=== PATIENT | male | born 1970 | race Caucasian/White ===

== ENCOUNTER → 2016-06-20 | Outpatient (CLI) | payer OTHER ==
--- NOTE | 2016-06-20 19:31 | PN ---
DATE OF SERVICE: 06/20/2016 This patient is 45-year-old gentleman who has been followed in the sleep center. He is here to discuss results of sleep studies and treatment of obstructive sleep apnea/hypopnea syndrome. We discussed the results of his sleep studies in detail. The patient has extremely severe sleep apnea, at present on treatment with CPAP at the pressure of 13 cm of water. I checked his CPAP unit; his apnea/hypopnea index reading with the machine for the one-month period is 1.1, and leak is 24 L/minute, which is acceptable. The patient used his equipment for the last month 25 out of 30 days; average usage 3.8 hours. Unfortunately the number of days with more than 4 hours is 12 out of 30, but it looks like he sleeps very close to 4 hours. He feels better with the machine in regards to his sleep and also during the day. [place] Sleepiness Scale is 3. No tiredness or sleepiness is reported. MEDICATION: Metoprolol. During physical exam, patient is in no distress. VITAL SIGNS: BP 138/71, HR 84, RR 16. Weight 261. Temperature 97.8. Oxygen saturation at room air 96%. HEENT: PERRLA, EOMI. LUNGS: Clear. HEART: S1, S2 regular. ABDOMEN: Soft, nontender. EXTREMITIES: No edema. IMPRESSION: 1. Extremely severe obstructive sleep apnea/hypopnea syndrome; apnea-hypopnea index 84.5 with oxygen desaturation to 65%, under control with CPAP at 13 cm water. Patient is able to use equipment without any problem, benefitting from treatment. Sometimes his mask goes off during the night. 2. Obesity. 3. Hypertension. 4. Carpal tunnel syndrome, status post surgical treatment. 5. Status post cholecystectomy. PLAN: 1. Patient will continue to use equipment every night for the whole night. 2. Losing weight. 3. Sleep hygiene with regular time in bed for at least 8 hours. 4. No driving if feeling any sleepiness. Thank you very much for allowing me to participate in the management of your patient. Sincerely, Obinna Lomax MD, PhD, FAASM. Diplomat of [place] [employer], Sleep Medicine Board by [place] [employer], [place] [employer]
== END | disposition home or self-care (01) ==

== ENCOUNTER 2019-12-31 18:38 | Emergency (ER) | payer OTHER ==
[2019-12-31 18:56] VITALS: RESP 18
[2019-12-31] MEDS ORDERED: KETOROLAC 30 MG/ML 1 ML VIAL IVP STA (19:43)
[2019-12-31] MEDS ORDERED: SODIUM CHLORIDE 0.9% 1,000 ML IV STA (19:47)
--- NOTE | 2019-12-31 19:47 | ED ---
Abdominal Pain HPI - General Chief Complaint: Abdominal Pain Stated Complaint: Abdominal pain Time Seen by Provider: 12/31/19 19:10 Source: patient Mode of arrival: ambulatory Limitations: no limitations - History of Present Illness Initial Comments: Patient is a 49-year-old male presenting to emergency Department with chief complaint of abdominal pain. Patient states the symptoms began early this morning when he woke up. Patient left lower quadrant abdominal pain without any radiation. Patient reports the pain feels like pressure. States he feels like he needs to have bowel movement but there is no need to actually have one. States did have a bowel movement earlier today without any issues. States the pain does not change with bowel movement. He does have history of cholecystectomy so he does have loose stools at baseline. Denies any hematuria, hematochezia or melena. Denies any penile discharge, testicular pain or tenderness. Denies any night sweats or chills. Denies any nausea vomiting. Denies any chest pain or shortness of breath. No flank or back pain. He never had a colonoscopy. - Related Data Home Medications Medication Instructions Recorded Confirmed Amoxicillin 500 mg PO TID 12/31/19 12/31/19 Atorvastatin [Lipitor] 10 mg PO HS 12/31/19 12/31/19 Canagliflozin [Invokana] 300 mg PO QAM 12/31/19 12/31/19 Lisinopril [Zestril] 10 mg PO DAILY 12/31/19 12/31/19 Metoprolol Succinate [Toprol XL] 25 mg PO DAILY 12/31/19 12/31/19 Semaglutide [Rybelsus] 7 mg PO QAM 12/31/19 12/31/19 Previous Rx's Medication Instructions Recorded Amoxicillin/Potassium Clav 1 tab PO Q12HR #28 tab 12/31/19 [Augmentin 875-125 Tablet] Allergies Allergy/AdvReac Type Severity Reaction Status Date / Time No Known Allergies Allergy Verified 12/31/19 20:01 Review of Systems ROS Statement: Those systems with pertinent positive or pertinent negative responses have been documented in the HPI. ROS Other: All systems not noted in ROS Statement are negative. Past Medical History Past Medical History: Diabetes Mellitus History of Any Multi-Drug Resistant Organisms: None Reported Past Surgical History: Cholecystectomy Past Psychological History: No Psychological Hx Reported Smoking Status: Never smoker Past Alcohol Use History: Occasional Past Drug Use History: None Reported General Exam Limitations: no limitations General appearance: alert, in no apparent distress, obese Head exam: Present: atraumatic, normocephalic, normal inspection Eye exam: Present: normal appearance, PERRL, EOMI Pupils: Present: normal accommodation ENT exam: Present: normal exam, normal oropharynx, mucous membranes moist, TM's normal bilaterally, normal external ear exam Neck exam: Present: normal inspection, full ROM. Absent: tenderness Respiratory exam: Present: normal lung sounds bilaterally. Absent: respiratory distress, wheezes, rales Cardiovascular Exam: Present: regular rate, normal rhythm, normal heart sounds GI/Abdominal exam: Present: soft, tenderness (Left lower quadrant), normal bowel sounds. Absent: distended, guarding, rebound, rigid, hernia exam: Present: normal inspection. Absent: testicular tenderness, urethral discharge, scrotal swelling, vertical testicular lie Extremities exam: Present: normal inspection, full ROM, normal capillary refill. Absent: tenderness Back exam: Present: normal inspection, full ROM. Absent: tenderness, CVA tenderness (R), CVA tenderness (L) Neurological exam: Present: alert, oriented X3, normal gait Psychiatric exam: Present: normal affect, normal mood Skin exam: Present: warm, dry, intact, normal color Course Vital Signs 12/31/19 12/31/19 18:53 22:55 Temperature 99 F 98.0 F Pulse Rate 96 88 Respiratory 18 18 Rate Blood Pressure 125/80 103/67 O2 Sat by Pulse 96 95 Oximetry Medical Decision Making - Medical Decision Making Patient is a 49-year-old male presenting to emergency Department with a chief complaint of abdominal pain. I patient has left lower quadrant abdominal pain. He does have mild leukocytosis. UA shows positive for ketones and glucose. Patient is diabetic. Anion gap is 10. CT abdomen and pelvis reveals for full diverticulitis. Patient started on Augmentin emergency department will be discharged with a 14 day course of Augmentin. Patient advised about the importance of a proper diverticulitis diet. His vitals are stable. Patient is tolerating orals. Abdominal pain is manageable. Return parameters were thoroughly discussed the patient's or standing and agreeable. Case discussed physician. - Lab Data Result diagrams: 12/31/19 20:06 12/31/19 20:06 Lab Results 12/31/19 12/31/19 12/31/19 Range/Units 20:06 20:06 20:06 WBC 11.5 H (3.8-10.6) k/uL RBC 5.01 (4.30-5.90) m/uL Hgb 15.1 (13.0-17.5) gm/dL Hct 44.7 (39.0-53.0) % MCV 89.2 (80.0-100.0) fL MCH 30.1 (25.0-35.0) pg MCHC 33.7 (31.0-37.0) g/dL RDW 12.8 (11.5-15.5) % Plt Count 304 (150-450) k/uL Neutrophils % 75 % Lymphocytes % 14 % Monocytes % 7 % Eosinophils % 1 % Basophils % 1 % Neutrophils # 8.7 H (1.3-7.7) k/uL Lymphocytes # 1.7 (1.0-4.8) k/uL Monocytes # 0.9 (0-1.0) k/uL Eosinophils # 0.1 (0-0.7) k/uL Basophils # 0.1 (0-0.2) k/uL Sodium 135 L (137-145) mmol/L Potassium 3.9 (3.5-5.1) mmol/L Chloride 102 (98-107) mmol/L Carbon Dioxide 23 (22-30) mmol/L Anion Gap 10 mmol/L BUN 15 (9-20) mg/dL Creatinine 0.75 (0.66-1.25) mg/dL Est GFR (CKD-EPI)AfAm >90 (>60 ml/min/1.73 sqM) Est GFR (CKD-EPI)NonAf >90 (>60 ml/min/1.73 sqM) Glucose 177 H (74-99) mg/dL Calcium 9.5 (8.4-10.2) mg/dL Total Bilirubin 0.5 (0.2-1.3) mg/dL AST 29 (17-59) U/L ALT 37 (4-49) U/L Alkaline Phosphatase 68 (38-126) U/L Total Protein 7.2 (6.3-8.2) g/dL Albumin 4.5 (3.5-5.0) g/dL Amylase 68 (30-110) U/L Lipase 222 (23-300) U/L Urine Color Light Yellow Urine Appearance Clear (Clear) Urine pH 5.5 (5.0-8.0) Ur Specific [place] 1.031 (1.001-1.035) Urine Protein Negative (Negative) Urine Glucose (UA) 4+ H (Negative) Urine Ketones 2+ H (Negative) Urine Blood Negative (Negative) Urine Nitrite Negative (Negative) Urine Bilirubin Negative (Negative) Urine Urobilinogen <2.0 (<2.0) mg/dL Ur Leukocyte Esterase Negative (Negative) Disposition Clinical Impression: Diverticulitis, Abdominal pain Disposition: HOME SELF-CARE Condition: Stable Instructions (If sedation given, give patient instructions): Diverticulitis (ED), Diverticulitis Diet (ED) Additional Instructions: Take prescribed medication. Follow proper diet. Return to emergency department if symptoms worsen. Prescriptions: Amoxicillin/Potassium Clav [Augmentin 875-125 Tablet] 1 tab PO Q12HR #28 tab Is patient prescribed a controlled substance at d/c from ED?: No Referrals: Corky Santiago MD [Primary Care Provider] - 1-2 days Time of Disposition: 21:53
[2019-12-31 20:15] LABS: Appearance,Urine Clear (Clear); Bilirubin,Urine Negative (Negative); Blood,Urine Negative (Negative); Color,Urine Light Yellow; Glucose,Urine (UA) 4+ (Negative); Leukocyte Esterase,Urine Negative (Negative); Nitrite,Urine Negative (Negative); PH, Urine 5.5 (5.0-8.0); Protein,Urine Negative (Negative); Specific Gravity,Urine 1.031 (1.001-1.035); Urobilinogen,Urine <2.0 mg/dL (<2.0)
[2019-12-31 20:18] LABS: Basophils # (A) 0.1 k/uL (0-0.2); Basophils % (A) 1 %; Eosinophils # (A) 0.1 k/uL (0-0.7); Eosinophils % (A) 1 %; HCT 44.7 % (39.0-53.0); HGB 15.1 gm/dL (13.0-17.5); Lymphocytes # (A) 1.7 k/uL (1.0-4.8); Lymphocytes % (A) 14 %; MCH 30.1 pg (25.0-35.0); MCHC 33.7 g/dL (31.0-37.0); MCV 89.2 fL (80.0-100.0); Mean Platelet Volume 6.7; Monocytes # (A) 0.9 k/uL (0-1.0); Monocytes % (A) 7 %; Neutrophils # (A) 8.7 k/uL (1.3-7.7); Neutrophils % (A) 75 %; Platelet Count 304 k/uL (150-450); RBC 5.01 m/uL (4.30-5.90); RDW 12.8 % (11.5-15.5); WBC 11.5 k/uL (3.8-10.6)
[2019-12-31 20:32] LABS: ALT 37 U/L (4-49); AST 29 U/L (17-59); African American GFR (CKD) >90 (>60 ml/min/1.73 sqM); Albumin 4.5 g/dL (3.5-5.0); Alkaline Phosphatase 68 U/L (38-126); Amylase 68 U/L (30-110); Anion Gap 10 mmol/L; Blood Urea Nitrogen 15 mg/dL (9-20); Calcium 9.5 mg/dL (8.4-10.2); Carbon Dioxide 23 mmol/L (22-30); Chloride 102 mmol/L (98-107); Glucose 177 mg/dL (74-99); Non-African American GFR(CKD) >90 (>60 ml/min/1.73 sqM); Potassium 3.9 mmol/L (3.5-5.1); Sodium 135 mmol/L (137-145); Total Bilirubin 0.5 mg/dL (0.2-1.3); Total Protein 7.2 g/dL (6.3-8.2)
[2019-12-31 20:38] LABS: Ketones,Urine 2+ (Negative)
[2019-12-31] MEDS ORDERED: MORPHINE SULFATE 4 MG/ML SYRINGE IVP STA (21:32)
--- NOTE | 2019-12-31 21:48 | CT ---
EXAMINATION TYPE: CT abdomen pelvis w con DATE OF EXAM: 12/31/2019 COMPARISON: None HISTORY: LLQ pain CT DLP: 1716 mGycm Automated exposure control for dose reduction was used. CONTRAST: Performed with IV Contrast, patient injected with 100 mL of Isovue 300. Images were obtained from the diaphragm to the floor the pelvis with IV contrast. There is some mild atelectasis at the posterior lung bases. There is mild fatty infiltration of the l iver. There are clips from cholecystectomy. Stomach spleen pancreas appear normal. Bile ducts are not dilated. There is no adrenal mass. Kidneys show satisfactory contrast opacification. There is no hydronephrosi s. Ureters are not dilated. There is no retroperitoneal adenopathy. Bladder distends smoothly. There is fat stranding around the proximal sigmoid colon with scattered diverticula. The appendix is line installer ior and appears normal. There is no mesenteric edema. There is no ascites or free air. There is no bowel obstruction. There i s no inguinal hernia. The lumbar vertebra have normal alignment. There is no compression fracture. I see no focal bone destruction. The bony pelvis appears intact. There is bilateral L5 spondylolysis wi thout spondylolisthesis. IMPRESSION: There is some focal diverticulitis in the proximal sigmoid colon. No drainable fluid collection. L5 spondylolysis without spondylolisthesis. Minimal atelectasis at the lung bases.
[2019-12-31] MEDS ORDERED: AMOXIC-POT CLAV 875-125MG 1 EACH TAB PO STA (21:51)
[2019-12-31 22:57] VITALS: BP 103/67; PULSE 88; TEMP 98
== END 2019-12-31 22:57 | disposition home or self-care (01) ==
LOC: EC 18:38
DX: K57.32 Diverticulitis of large intestine without perforation or abscess without bleeding (principal); E11.9 Type 2 diabetes mellitus without complications; Z79.84 Long term (current) use of oral hypoglycemic drugs; Z79.899 Other long term (current) drug therapy; Z90.49 Acquired absence of other specified parts of digestive tract
CPT/HCPCS: 36415; 80053; 82150; 83690; 85025; 81003; 74177; 99284; 96374; 96375; 96361; J2270; J1885; Q9967

== ENCOUNTER 2020-05-18 17:00 | Observation (INO) | payer OTHER ==
--- NOTE | 2020-05-18 17:55 | ED ---
General Adult HPI - General Chief complaint: Chest Pain Stated complaint: chest pain Time Seen by Provider: 05/18/20 17:02 Source: patient, EMS, RN notes reviewed, old records reviewed Mode of arrival: EMS Limitations: no limitations - History of Present Illness Initial comments: 49-year-old male presenting for evaluation of left-sided chest pain which began approximately one hour prior to arrival. Patient has history of hypertension diabetes. He states he had a sharp chest pain in the left lateral chest. He did not radiate. It was intermittent over the course of several minutes. He has no chest pain at the time my evaluation. No dyspnea. Minimal cough. No vomiting. He states he did feel warm and flushed at the onset of this pain. He has no known history of coronary artery disease. No history DVT or PE. Denies lower extremity pain or swelling. Denies fever. - Related Data Home Medications Medication Instructions Recorded Confirmed Atorvastatin [Lipitor] 10 mg PO HS 12/31/19 05/18/20 Canagliflozin [Invokana] 300 mg PO DAILY 12/31/19 05/18/20 Lisinopril [Zestril] 10 mg PO DAILY 12/31/19 05/18/20 Metoprolol Succinate [Toprol XL] 25 mg PO DAILY 12/31/19 05/18/20 Allergies Allergy/AdvReac Type Severity Reaction Status Date / Time No Known Allergies Allergy Verified 05/18/20 17:35 Review of Systems ROS Statement: Those systems with pertinent positive or pertinent negative responses have been documented in the HPI. ROS Other: All systems not noted in ROS Statement are negative. Past Medical History Past Medical History: Diabetes Mellitus, Hypertension History of Any Multi-Drug Resistant Organisms: None Reported Past Surgical History: Cholecystectomy Additional Past Surgical History / Comment(s): carpal tunnel left hand Past Psychological History: No Psychological Hx Reported Smoking Status: Never smoker Past Alcohol Use History: Occasional Past Drug Use History: None Reported General Exam Limitations: no limitations General appearance: alert, in no apparent distress Head exam: Present: atraumatic, normocephalic Eye exam: Present: normal appearance, PERRL ENT exam: Present: normal exam Neck exam: Present: normal inspection Respiratory exam: Present: normal lung sounds bilaterally. Absent: respiratory distress, wheezes Cardiovascular Exam: Present: regular rate, normal rhythm GI/Abdominal exam: Present: soft. Absent: distended, tenderness, guarding Extremities exam: Present: normal inspection, normal capillary refill. Absent: pedal edema Neurological exam: Present: alert, oriented X3 Psychiatric exam: Present: normal affect, normal mood Skin exam: Present: warm, dry, intact. Absent: cyanosis, diaphoretic Course Vital Signs 05/18/20 05/18/20 05/18/20 17:03 17:40 18:43 Temperature 98.1 F 98.0 F Pulse Rate 85 84 76 Respiratory 18 18 16 Rate Blood Pressure 137/97 137/97 113/74 O2 Sat by Pulse 95 96 97 Oximetry - Reevaluation(s) Reevaluation #1: 05/18/20 18:58 Patient had received aspirin prior to transport by EMS. He is reevaluated, chest pain-free. EKG Findings - EKG Comments: EKG Findings:: EKG: Normal sinus rhythm, rate of 84, [place] interval 172, QRS duration 96, QTC 437, no ST segment elevation. Medical Decision Making - Medical Decision Making 49-year-old male with left anterior chest pain. Pain has been typical and atypical features. No known coronary artery disease, he does have hypertension and diabetes. EKG is sinus rhythm without ST segment elevation. Chest x-rays negative for acute cardio pulmonary disease. Normal CBC, normal CMP, negative troponin, negative d-dimer. Patient remains chest pain-free while in the emergency department. He will be kept in observation for serial cardiac enzymes, telemetry, cardiac consultation. Case is discussed with Dr. House who will admit. - Lab Data Result diagrams: 05/18/20 17:19 05/18/20 17:19 Lab Results 05/18/20 05/18/20 05/18/20 Range/Units 17:19 17:19 17:19 WBC 6.6 (3.8-10.6) k/uL RBC 5.46 (4.30-5.90) m/uL Hgb 16.2 (13.0-17.5) gm/dL Hct 48.7 (39.0-53.0) % MCV 89.1 (80.0-100.0) fL MCH 29.8 (25.0-35.0) pg MCHC 33.4 (31.0-37.0) g/dL RDW 13.2 (11.5-15.5) % Plt Count 293 (150-450) k/uL MPV 6.7 Neutrophils % 56 % Lymphocytes % 29 % Monocytes % 10 % Eosinophils % 1 % Basophils % 1 % Neutrophils # 3.7 (1.3-7.7) k/uL Lymphocytes # 1.9 (1.0-4.8) k/uL Monocytes # 0.7 (0-1.0) k/uL Eosinophils # 0.1 (0-0.7) k/uL Basophils # 0.0 (0-0.2) k/uL PT 10.1 (9.0-12.0) sec INR 1.0 (<1.2) APTT 25.1 (22.0-30.0) sec D-Dimer <0.17 (<0.60) mg/L FEU Sodium 137 (137-145) mmol/L Potassium 4.2 (3.5-5.1) mmol/L Chloride 105 (98-107) mmol/L Carbon Dioxide 24 (22-30) mmol/L Anion Gap 8 mmol/L BUN 16 (9-20) mg/dL Creatinine 0.84 (0.66-1.25) mg/dL Est GFR (CKD-EPI)AfAm >90 (>60 ml/min/1.73 sqM) Est GFR (CKD-EPI)NonAf >90 (>60 ml/min/1.73 sqM) Glucose 149 H (74-99) mg/dL Calcium 10.0 (8.4-10.2) mg/dL Magnesium 2.0 (1.6-2.3) mg/dL Total Bilirubin 0.3 (0.2-1.3) mg/dL AST 46 (17-59) U/L ALT 67 H (4-49) U/L Alkaline Phosphatase 57 (38-126) U/L Troponin I (0.000-0.034) ng/mL Total Protein 7.7 (6.3-8.2) g/dL Albumin 4.6 (3.5-5.0) g/dL 05/18/20 Range/Units 17:19 WBC (3.8-10.6) k/uL RBC (4.30-5.90) m/uL Hgb (13.0-17.5) gm/dL Hct (39.0-53.0) % MCV (80.0-100.0) fL MCH (25.0-35.0) pg MCHC (31.0-37.0) g/dL RDW (11.5-15.5) % Plt Count (150-450) k/uL MPV Neutrophils % % Lymphocytes % % Monocytes % % Eosinophils % % Basophils % % Neutrophils # (1.3-7.7) k/uL Lymphocytes # (1.0-4.8) k/uL Monocytes # (0-1.0) k/uL Eosinophils # (0-0.7) k/uL Basophils # (0-0.2) k/uL PT (9.0-12.0) sec INR (<1.2) APTT (22.0-30.0) sec D-Dimer (<0.60) mg/L FEU Sodium (137-145) mmol/L Potassium (3.5-5.1) mmol/L Chloride (98-107) mmol/L Carbon Dioxide (22-30) mmol/L Anion Gap mmol/L BUN (9-20) mg/dL Creatinine (0.66-1.25) mg/dL Est GFR (CKD-EPI)AfAm (>60 ml/min/1.73 sqM) Est GFR (CKD-EPI)NonAf (>60 ml/min/1.73 sqM) Glucose (74-99) mg/dL Calcium (8.4-10.2) mg/dL Magnesium (1.6-2.3) mg/dL Total Bilirubin (0.2-1.3) mg/dL AST (17-59) U/L ALT (4-49) U/L Alkaline Phosphatase (38-126) U/L Troponin I <0.012 (0.000-0.034) ng/mL Total Protein (6.3-8.2) g/dL Albumin (3.5-5.0) g/dL Disposition Clinical Impression: Chest pain Disposition: ADMITTED IP TO THIS HOSP Condition: Stable Is patient prescribed a controlled substance at d/c from ED?: No Referrals: Corky Santiago MD [Primary Care Provider] - 1-2 days Decision to Admit Reason: Admit from EC Decision Date: 05/18/20 Decision Time: 18:59
--- NOTE | 2020-05-18 17:58 | XR ---
EXAMINATION TYPE: XR chest 2V DATE OF EXAM: 05/18/2020 COMPARISON: NONE HISTORY: Wrist pain TECHNIQUE: 2 views FINDINGS: Heart and mediastinum are normal. Lungs are clear. Diaphragm is normal. Bony thorax appears normal. IMPRESSION: Normal chest.
[2020-05-18 18:11] LABS: D-Dimer <0.17 mg/L FEU (<0.60); Partial Thromboplastin Time 25.1 sec (22.0-30.0); Prothrombin Time 10.1 sec (9.0-12.0)
[2020-05-18 18:12] LABS: ALT 67 U/L (4-49); AST 46 U/L (17-59); African American GFR (CKD) >90 (>60 ml/min/1.73 sqM); Albumin 4.6 g/dL (3.5-5.0); Alkaline Phosphatase 57 U/L (38-126); Anion Gap 8 mmol/L; Basophils % (A) 1 %; Blood Urea Nitrogen 16 mg/dL (9-20); Carbon Dioxide 24 mmol/L (22-30); Chloride 105 mmol/L (98-107); Eosinophils # (A) 0.1 k/uL (0-0.7); Eosinophils % (A) 1 %; Glucose 149 mg/dL (74-99); HCT 48.7 % (39.0-53.0); HGB 16.2 gm/dL (13.0-17.5); Lymphocytes # (A) 1.9 k/uL (1.0-4.8); Lymphocytes % (A) 29 %; MCH 29.8 pg (25.0-35.0); MCHC 33.4 g/dL (31.0-37.0); MCV 89.1 fL (80.0-100.0); Mean Platelet Volume 6.7; Monocytes # (A) 0.7 k/uL (0-1.0); Monocytes % (A) 10 %; Neutrophils # (A) 3.7 k/uL (1.3-7.7); Neutrophils % (A) 56 %; Non-African American GFR(CKD) >90 (>60 ml/min/1.73 sqM); Platelet Count 293 k/uL (150-450); Potassium 4.2 mmol/L (3.5-5.1); RBC 5.46 m/uL (4.30-5.90); RDW 13.2 % (11.5-15.5); Sodium 137 mmol/L (137-145); Total Bilirubin 0.3 mg/dL (0.2-1.3); Total Protein 7.7 g/dL (6.3-8.2); WBC 6.6 k/uL (3.8-10.6)
[2020-05-18] MEDS ORDERED: NALOXONE 0.4 MG/ML 1 ML VIAL IV PRN ×2 (18:59→19:01)
[2020-05-18] MEDS ORDERED: MORPHINE SULFATE 4 MG/ML SYRINGE IV PRN (19:01)
[2020-05-18] MEDS ORDERED: NITROGLYCERIN SL TABS 0.4 MG TAB SUBLINGUAL PRN (19:01)
[2020-05-19 08:02] VITALS: BP 122/91; PULSE 72; RESP 16; TEMP 97.7
[2020-05-19] MEDS ORDERED: ASPIRIN 325 MG TAB PO SCH (09:00)
[2020-05-19] MEDS ORDERED: METOPROLOL SUCCINATE (ER) 25 MG TAB.ER.24H PO SCH (09:00)
[2020-05-19] MEDS ORDERED: lisinopriL 10 MG TAB PO SCH (09:00)
[2020-05-19] MEDS ORDERED: NON FORMULARY DRUG (Canagliflozin [Invokana] 300 MG Tablet) PO SCH (09:00)
[2020-05-19] MEDS ORDERED: ASPIRIN 81 MG PO SCH (09:00)
--- NOTE | 2020-05-19 09:50 | CONS ---
CONSULTATION Mr. Jara is a 49-year-old male with a history of hypertension and hyperlipidemia as well history of diabetes mellitus, who presented to the emergency room with symptoms of chest discomfort. The discomfort occurred when he stood up, better when he sat down. The discomfort happened twice yesterday and on the second one he fell, that is why he came into the emergency room. By the time the EMS arrived, he was pain-free. He is doing well at this time. He is active physically, has no exertional chest pain. No history of coronary artery disease. No dizziness, palpitation or syncope. No PND, orthopnea, or peripheral edema. He is a nonsmoker. His coronary risk factors are remarkable for hypertension, hyperlipidemia, and diabetes. MEDICATIONS: Include Lipitor 10 mg daily, Invokana 300 mg daily, Zestril 10 mg daily, and Toprol-XL 25 mg daily. REVIEW OF SYSTEMS: RESPIRATORY SYSTEM: He has no history of documented asthma, emphysema or bronchitis. GI SYSTEM: No recent GI bleeding, no peptic ulcer disease. SYSTEM: No dysuria or hematuria. NERVOUS SYSTEM: No stroke or seizure. PHYSICAL EXAMINATION: A 49-year-old male, alert, oriented, in no apparent distress. Blood pressure 122/90 with a heart rate in the 70s. HEAD: Normocephalic. EYES: Sclerae nonicteric. NECK: Good upstroke, no bruit, no jugular venous distention. LUNGS: Clear to auscultation. HEART: Regular rate and rhythm, S1, S2. No S3. No S4. No murmur or rub. ABDOMEN: Soft, nontender, positive bowel sounds, no organomegaly. EXTREMITIES: No edema, intact distal pulses. LAB DATA: Revealed troponin less than 0.012 for 3 samples. BUN and creatinine 16 and 0.84, potassium 4.2, hemoglobin of 16.2. EKG revealed a sinus mechanism, normal axis and intervals, rate of 84, no acute changes. IMPRESSION: 1. Chest discomfort, atypical for ischemic heart disease, probably noncardiac in etiology. 2. History of hypertension. 3. Hyperlipidemia. 4. Diabetes mellitus. RECOMMENDATION: Recommend to proceed with a stress echocardiogram to assess his status and guide his treatment. The rationale behind the plan was discussed with the patient who is in full understanding and agreement. Thank you for this consult. Will follow with you. MMODL / IJN: [id number] /
[2020-05-19 10:29] LABS: Glucose,Whole Blood 152 mg/dL (75-99)
--- NOTE | 2020-05-19 11:43 | ECHOF ---
Referral Reason:cp MEASUREMENTS -------- HEIGHT: 175.3 cm WEIGHT: 106.1 kg BP: 116/65 RVIDd: 3.3 cm (< 3.3) IVSd: 1.3 cm (0.6 - 1.1) LVIDd: 3.5 cm (3.9 - 5.3) LVPWd: 1.5 cm (0.6 - 1.1) IVSs: 1.7 cm LVIDs: 2.2 cm LVPWs: 1.7 cm LAESV Index (A-L): 18.99 ml/m Ao Diam: 3.7 cm (2.0 - 3.7) AV Cusp: 2.7 cm (1.5 - 2.6) MV E Anthony: 0.52 m/s MV DecT: 193 ms MV A Anthoyn: 0.67 m/s MV E/A Ratio: 0.77 RAP: 5.00 mmHg RVSP: 31.13 mmHg FINDINGS -------- Sinus rhythm. This was a technically adequate study. The left ventricular size is normal. There is mild concentric left ventricular hypertrophy. Overa ll left ventricular systolic function is normal with, an EF between 55 - 60 %. The diastolic fillin g pattern is normal for the age of the patient 7.27. The right ventricle is mildly enlarged. Normal LA size by volume 22+/-6 ml/m2. The right atrial size is normal. Interatrial and interventricular septum intact. The aortic valve is trileaflet, and appears structurally normal. No aortic stenosis or regurgitation. The mitral valve is normal. Mild mitral regurgitation is present. The tricuspid valve appears structurally normal. Mild tricuspid regurgitation present. Right vent ricular systolic pressure is normal at < 35 mmHg. The right ventricular systolic pressure, as measu red by Doppler, is 31.13mmHg. There is no pulmonic regurgitation present. The aortic root size is normal. IVC Not well visulized. There is no pericardial effusion. CONCLUSIONS -------- 1. There is mild concentric left ventricular hypertrophy. 2. Overall left ventricular systolic function is normal with, an EF between 55 - 60 %. 3. The diastolic filling pattern is normal for the age of the patient 7.27 4. The right ventricle is mildly enlarged. 5. Normal LA size by volume 22+/-6 ml/m2. 6. The aortic valve is trileaflet, and appears structurally normal. No aortic stenosis or regurgitati on. 7. Mild mitral regurgitation is present. 8. Mild tricuspid regurgitation present. MILITARY PERSONNEL SPECIALIST: Aline Khanna RDCS
--- NOTE | 2020-05-19 12:53 | ECHOS ---
STRESS ECHOCARDIOGRAM LUMASON: N/A Vial INDICATIONS: Chest pain. MEDICATIONS: BASELINE HEART RATE: 68 BASELINE BLOOD PRESSURE: 116/55 MAXIMUM HEART RATE: 156 MAXIMUM BLOOD PRESSURE: 189/87 85% MPHR: 145 100% MPHR: 170 METS: 10.5 MAXIMUM STAGE REACHED: 4 TOTAL EXERCISE TIME: 9:10 CLINICAL INFORMATION: Baseline rhythm is a sinus mechanism, rate of 68, normal axis and intervals, poor R- wave progression. Baseline blood pressure 116/55 mmHg. Patient exercised on Diego protocol for 9 minutes 10 seconds artery reaching peak rate 156 beats per minute which is equal to 91% maximum predicted heart rate. Peak blood pressure 189/87 mmHg. Test was terminated due to fatigue. There was no chest pain. Electrocardiograph monitoring revealed no evidence of diagnostic ST-segment deviation. FINDINGS: Baseline echocardiogram revealed normal wall thickening and motion. At peak exercise, there was normal wall motion augmentation with no hypokinesis or dyskinesis. CONCLUSION: 1. Good exercise tolerance with normal echocardiograph response to exercise. 2. Normal stress echocardiogram with no evidence of stress-induced ischemia. MMODL / IJN: [id number] /
[2020-05-19] MEDS ORDERED: ATORVASTATIN 10 MG TAB PO SCH (21:00)
--- NOTE | 2020-05-19 21:05 | P.HPIM ---
History of Present Illness H&P Date: 05/19/20 Chief Complaint: Chest wall sharp pain History of presenting complaint: This is a pleasant 49-year-old patient of Dr. luis. Chronic stable medical conditions include diabetes, hypertension, obesity. Yesterday patient was lying down when he got up he felt left sharp shocking pain in the left chest wall last for a few seconds. Understanding. Slight perspiration. No fever no chills. No cough. No shortness of breath. This was very short-lived episode. Normally patient got good exercise tolerance. No prior cardiac history. Decided to come in. Patient's does have COVID. No upper respiratory tract symptoms. Review of systems: GEN.: None EYES: None HEENT: None NECK: None RESPIRATORY: None CARDIOVASCULAR: As above GASTROINTESTINAL: None GENITOURINARY: None MUSCULOSKELETAL: As above LYMPHATICS: None HEMATOLOGICAL: None PSYCHIATRY: None NEUROLOGICAL: None Past medical history to include: Diabetes, hypertension Social history: Does not smoke. . Alcohol occasionally. Does work with the left regeneration. Family history: Coronary artery disease Physical examination: VITAL SIGNS: 98.1, 85, 18, 137/97, 95% room air GENERAL: BMI 34.6, sitting up, comfortable. EYES: Pupils equal. Conjunctiva normal. HEENT: External appearance of nose and ears normal, oral cavity grossly normal. NECK: JVD not raised; masses not palpable. HEART: First and second heart sounds are normal; no edema. LUNGS: Respiratory rate normal; clear to auscultation. ABDOMEN: Soft, nontender, liver spleen not palpable, no masses palpable. PSYCH: Alert and oriented x3; mood and affect normal. NEUROLOGICAL: Cranial nerves grossly intact; no facial asymmetry, power and sensation grossly intact. LYMPHATICS: No lymph nodes palpable in the axilla and neck INVESTIGATIONS, reviewed in the clinical context: White count 6.6 hemoglobin 16.2 platelets 293 potassium 4.2 creatinine 0.84 Troponin I 3 EKG tracing personally reviewed by me-normal sinus rhythm Chest x-ray film personally reviewed by me-lung rodriguez clear 2-D echocardiogram-EF 55-60%. Assessment: -This is a patient presented with 2 episodes of sharp left lateral chest wall pain lasting for about 5 seconds. Positional. Noncardiac sounding. Risk factors include diabetes hypertension and a positive family history. -Diabetes mellitus type 2 -Essential hypertension -Obesity BMI 34.6 Plan: Home medications resumed. Cardiology was consulted. They ordered a stress echocardiogram. Care was discussed with patient. Past Medical History Past Medical History: Diabetes Mellitus, Hypertension History of Any Multi-Drug Resistant Organisms: None Reported Past Surgical History: Cholecystectomy Additional Past Surgical History / Comment(s): carpal tunnel left hand Additional Past Anesthesia/Blood Transfusion Reaction / Comment(s): never had one Past Psychological History: No Psychological Hx Reported Smoking Status: Never smoker Past Alcohol Use History: Occasional Past Drug Use History: None Reported - Past Family History Mother Family Medical History: Chest Pain / Angina, Diabetes Mellitus, Myocardial Infarction ([place]) Additional Family Medical History / Comment(s): stents Father Additional Family Medical History / Comment(s): stents Medications and Allergies Home Medications Medication Instructions Recorded Confirmed Type Atorvastatin [Lipitor] 10 mg PO HS 12/31/19 05/18/20 History Canagliflozin [Invokana] 300 mg PO DAILY 12/31/19 05/18/20 History Lisinopril [Zestril] 10 mg PO DAILY 12/31/19 05/18/20 History Metoprolol Succinate [Toprol XL] 25 mg PO DAILY 12/31/19 05/18/20 History Allergies Allergy/AdvReac Type Severity Reaction Status Date / Time No Known Allergies Allergy Verified 05/18/20 17:35 Physical Exam Vitals: Vital Signs Temp Pulse Pulse Resp BP BP Pulse Ox 05/19/20 09:00 16 05/19/20 08:01 97.7 F 72 16 122/91 95 05/19/20 06:05 97.8 F 67 20 122/85 95 05/19/20 02:00 97.8 F 72 18 101/71 96 05/18/20 23:02 87 18 104/68 95 05/18/20 21:05 76 18 103/71 94 L Intake and Output 05/19/20 05/19/20 05/19/20 06:59 14:59 22:59 Intake Total 100 Balance 100 Intake: Oral 100 Other: Voiding Method Toilet # Voids 1 Weight 106.14 kg Results CBC & Chem 7: 05/18/20 17:19 05/18/20 17:19 Labs: Abnormal Lab Results - Last 24 Hours (Table) 05/19/20 Range/Units 10:27 POC Glucose (mg/dL) 152 H (75-99) mg/dL Thrombosis Risk Factor Assmnt - Choose All That Apply Each Factor Represents 1 point: Age 41-60 years, Obesity (BMI >25) Thrombosis Risk Factor Assessment Total Risk Factor Score: 2 Thrombosis Risk Factor Assessment Level: Low Risk
--- NOTE | 2020-05-19 21:08 | P.DS ---
Providers Date of admission: 05/18/20 19:00 Expected date of discharge: 05/19/20 Attending physician: Marcus House Consults: 05/18/20 19:00 Consult Physician Routine Consulting Provider: Phil Luevano Consult Reason/Comments: CP Rule out Do you want consulting provider notified?: Yes Primary care physician: Corky Santiago MD Hospital Course: Chief Complaint: Chest wall sharp pain History of presenting complaint: This is a pleasant 49-year-old patient of Dr. santiago. Chronic stable medical conditions include diabetes, hypertension, obesity. Yesterday patient was lying down when he got up he felt left sharp shocking pain in the left chest wall last for a few seconds. Understanding. Slight perspiration. No fever no chills. No cough. No shortness of breath. This was very short-lived episode. Normally patient got good exercise tolerance. No prior cardiac history. Decided to come in. Patient's does have COVID. No upper respiratory tract symptoms. 2-D echocardiogram was unremarkable. Normal stress echocardiogram. Air Motor Repairer: Dr. Lee from cardiology Physical examination: VITAL SIGNS: 97.7, 72, 16, 122.91, 95% room air GENERAL: BMI 34.6, sitting up, comfortable. EYES: Pupils equal. Conjunctiva normal. HEENT: External appearance of nose and ears normal, oral cavity grossly normal. NECK: JVD not raised; masses not palpable. HEART: First and second heart sounds are normal; no edema. LUNGS: Respiratory rate normal; clear to auscultation. ABDOMEN: Soft, nontender, liver spleen not palpable, no masses palpable. PSYCH: Alert and oriented x3; mood and affect normal. INVESTIGATIONS, reviewed in the clinical context: White count 6.6 hemoglobin 16.2 platelets 293 potassium 4.2 creatinine 0.84 Troponin I 3 EKG tracing personally reviewed by me-normal sinus rhythm Chest x-ray film personally reviewed by me-lung rodriguez clear 2-D echocardiogram-EF 55-60%. Stress echocardiogram-negative for ischemia Assessment: -Left anterior chest wall pain. Likely muscular skeletal [positional] -Diabetes mellitus type 2 -Essential hypertension -Obesity BMI 34.6 Disposition: Home Patient Condition at Discharge: Stable Plan - Discharge Summary New Discharge Prescriptions: Continue Atorvastatin [Lipitor] 10 mg PO HS Canagliflozin [Invokana] 300 mg PO DAILY Lisinopril [Zestril] 10 mg PO DAILY Metoprolol Succinate [Toprol XL] 25 mg PO DAILY Discharge Medication List Atorvastatin [Lipitor] 10 mg PO HS 12/31/19 [History] Canagliflozin [Invokana] 300 mg PO DAILY 12/31/19 [History] Lisinopril [Zestril] 10 mg PO DAILY 12/31/19 [History] Metoprolol Succinate [Toprol XL] 25 mg PO DAILY 12/31/19 [History] Follow up Appointment(s)/Referral(s): Martin Lee MD [STAFF PHYSICIAN] - 2 Weeks (Cardiology office will call with appointment time) Corky Santiago MD [Primary Care Provider] - 05/23/20 1:15 pm Patient Instructions/Handouts: Chest Pain (DC), Heart Healthy Diet (DC)
== END 2020-05-19 13:32 ==
LOC: EC 17:00 → 1SOBS 19:00
PROVIDERS: ADMIT Hospitalist; ATTEND Hospitalist
DX: R07.89 Other chest pain (principal); R05 Cough; R23.2 Flushing; I10 Essential (primary) hypertension; E11.9 Type 2 diabetes mellitus without complications; E78.5 Hyperlipidemia, unspecified; E66.9 Obesity, unspecified; Z20.828 Contact with and (suspected) exposure to other viral communicable diseases; Z79.899 Other long term (current) drug therapy; Z90.49 Acquired absence of other specified parts of digestive tract; Z86.69 Personal history of other diseases of the nervous system and sense organs; Z98.890 Other specified postprocedural states; Z68.34 Body mass index [BMI] 34.0-34.9, adult; Z82.49 Family history of ischemic heart disease and other diseases of the circulatory system; Z83.3 Family history of diabetes mellitus
CPT/HCPCS: 99285; 36415; 93005; 93306; 93351; 85379; 80053; 83735; 84484 ×2; 85025; 85610; 85730; 71046; G0378 ×2; Q9950

== ENCOUNTER 2020-07-03 06:34 | Day surgery (SDC) | payer OTHER ==
[2020-06-28 13:04] VITALS: BMI 34.4
[~2020-07-03 06:34] MED LIST: LACTATED RINGERS 1,000 ML IV SCH; LIDOCAINE 1% (10MG/ML) FOR IV START INTRADERMA PRN
[2020-07-03 07:21] VITALS: TEMP 97.2
[2020-07-03 07:21] LABS: Glucose,Whole Blood 179 mg/dL (75-99)
[2020-07-03] MEDS ORDERED: PROPOFOL 10 MG/ML 20 ML VIAL IV ONE (07:42)
[2020-07-03] MEDS ORDERED: fentaNYL (PF) 50 MCG/ML 2 ML AMP ONE (07:42)
[2020-07-03] MEDS ORDERED: LIDOCAINE 1% INJ 10MG/ML (20 ML MDV) ONE (07:42)
[2020-07-03] MEDS ORDERED: MIDAZOLAM 2 MG/2 ML VIAL ONE (07:42)
--- NOTE | 2020-07-03 08:14 | P.PCN ---
Date of Procedure: 07/03/20 Description of Procedure: BRIEF HISTORY: Patient is a 50-year-old female presenting for outpatient colonoscopy for screening for colon neoplasm. He denies any prior history of colonoscopies. No change in bowel habits or blood per rectum. No family history of colon cancer. PROCEDURE PERFORMED: Colonoscopy with polypectomy. PREOPERATIVE DIAGNOSIS: Screening for malignant neoplasm of the colon, no prior colonoscopies reported. ESTIMATED BLOOD LOSS: Minimal. IV sedation per Anesthesia. PROCEDURE: After informed consent was obtained, the patient, was brought into the endoscopy unit. IV sedation was administered by Anesthesia under continuous monitoring. Digital rectal examination was normal. Initially the Olympus CF-190 flexible video colonoscope was then inserted in the rectum, gradually advanced into the cecum without any difficulty. Careful examination was performed as the scope was gradually being withdrawn. Ileocecal valve and the appendiceal orifice were visualized and appeared normal. Prep was excellent. Mucosa of the cecum, ascending colon, transverse colon, descending colon, sigmoid colon, and rectum appeared normal, with a few scattered diverticula noted in the sigmoid colon. 2 diminutive polyps measuring 1 mm in size removed from the ascending colon with cold forcep polypectomy. Sessile 6 mm sigmoid colon polyp removed with cold snare polypectomy. Retroflexion was performed in the rectum and no lesions were seen. The patient tolerated the procedure well. IMPRESSION: Sessile sigmoid polyp removed with cold snare polypectomy. 2 diminutive ascending colon polyp removed with cold forceps. Mild sigmoid diverticulosis. RECOMMENDATIONS: Findings of this examination were discussed with the patient. Okay to resume diet. Okay to resume medications. Await pathology from polypectomies. Recommend repeat colonoscopy in 5 years, pending pathology from polypectomies.
[2020-07-03 08:17] VITALS: RESP 16
[2020-07-03 08:32] VITALS: BP 127/83; PULSE 82
== END 2020-07-03 09:00 | disposition home or self-care (01) ==
LOC: ORWHC2ENDO 06:34
PROVIDERS: ATTEND Internal Medicine
DX: Z12.11 Encounter for screening for malignant neoplasm of colon (principal); D12.5 Benign neoplasm of sigmoid colon; K63.5 Polyp of colon; K57.30 Diverticulosis of large intestine without perforation or abscess without bleeding; I10 Essential (primary) hypertension; E78.5 Hyperlipidemia, unspecified; G47.33 Obstructive sleep apnea (adult) (pediatric); E11.9 Type 2 diabetes mellitus without complications; Z79.899 Other long term (current) drug therapy; Z90.49 Acquired absence of other specified parts of digestive tract; Z86.69 Personal history of other diseases of the nervous system and sense organs; Z98.890 Other specified postprocedural states; Z99.89 Dependence on other enabling machines and devices
CPT/HCPCS: 45380; 45385; 88305; J2250; J2001; J3010; J2704

== ENCOUNTER → 2021-12-27 | Outpatient (CLI) | payer OTHER ==
--- NOTE | 2021-12-27 09:41 | MR ---
EXAMINATION TYPE: MR lumbar spine wo con DATE OF EXAM: 12/27/2021 COMPARISON: NONE HISTORY: No prior, low back pain TECHNIQUE: T1 and T2 axial and sagittal images of the lumbar spine are submitted. FINDINGS: There is no abnormal signal seen within the visualized spinal cord or paraspinal soft tissu es. At L1-2 there is degenerative disc disease. Right paracentral disc bulging and mild effacement of the ximena sac. Neural foramina are patent. At L2-3 there is degenerative disc disease with no canal stenosis or focal herniation. There is circu mferential disc bulging greater than right with mild right foraminal protrusion. At L3-4 there is degenerative disc disease with no focal herniation or canal stenosis. Very mild bila teral foraminal At L4-5 there is there is a focal right paracentral disc herniation compressing the thecal sac and na rrowing the right neural foramina. Degenerative disc disease noted. Portion of the disc herniation ex tends posterior to the upper margin of the L5 segment. At L5-S1 there is focal central disc protrusion with mild effacement of thecal sac. Facet arthropathy . Neural foramina appear patent. IMPRESSION: 1. A moderate-sized right paracentral disc herniation L4-L5 with compression of the thecal sac and na rrowing of the right neural foramen. 2. Multilevel degenerative disc disease with disc bulging or protrusion as discussed above. Multileve l mild foraminal encroachment.
== END | disposition home or self-care (01) ==
LOC: RADMRIMAIN 07:55
PROVIDERS: ATTEND Family Medicine
DX: M51.16 Intervertebral disc disorders with radiculopathy, lumbar region (principal); M47.26 Other spondylosis with radiculopathy, lumbar region; M99.73 Connective tissue and disc stenosis of intervertebral foramina of lumbar region
CPT/HCPCS: 72148